=== PATIENT | male | born 1960 | race Caucasian/White ===

== ENCOUNTER 2017-06-14 17:31 | Observation (INO) | payer OTHER ==
[~2017-06-14] VITALS: Ht 198.1 cm; Wt 209.7 kg
[2017-06-14] MEDS ORDERED: LISI2.5T PO (17:48)
[2017-06-14] MEDS ORDERED: METF500T4 PO (17:48)
[2017-06-14 18:29] LABS: BASOPHILS # (AUTO) 0.04 x10^3/uL (0-0.1); BASOPHILS % (AUTO) 1 % (0-1); EOSINOPHILS # (AUTO) 0.05 x10^3/uL (0-0.4); EOSINOPHILS % (AUTO) 1 % (1-7); LYMPHOCYTES # (AUTO) 1.38 x10^3/uL (1-3.4); LYMPHOCYTES % (AUTO) 20 % (22-44); MD NO; MEAN CORPUSCULAR HEMOGLOBIN 26.3 pg (27.5-34.5); MEAN CORPUSCULAR HGB CONC 32.9 g/dL (33.2-36.2); MEAN CORPUSCULAR VOLUME 80.1 fL (81-97); MONOCYTES # (AUTO) 0.61 x10^3/uL (0.2-0.8); MONOCYTES % (AUTO) 9 % (2-9); NEUTROPHILS # (AUTO) 4.99 x10^3/uL (1.8-6.8); NEUTROPHILS % (AUTO) 71 % (42-75); PLATELET COUNT 202 x10^3/uL (130-400); RED BLOOD COUNT 5.77 x10^6/uL (4.38-5.82)
[2017-06-14] MEDS ORDERED: MORPHINE SULFATE 4 MG/ML, 1ML IVPush PRN (18:30)
[2017-06-14] MEDS ORDERED: NITROGLYCERIN SINGLE TAB 0.4 MG SL PRN (18:30)
[2017-06-14] MEDS ORDERED: SODIUM CHLORIDE FLUSH 10ML SYR IVF ONE (18:30)
[2017-06-14 18:37] LABS: ALANINE AMINOTRANSFERASE 77 U/L (12-78); ALBUMIN 3.5 g/dL (3.4-5.0); ANION GAP 8 mmol/L (5-15); CALCIUM 9.1 mg/dL (8.5-10.1); CHLORIDE 103 mmol/L (98-107); CREATININE 1.18 mg/dL (0.7-1.3)
[2017-06-14 18:42] LABS: ALKALINE PHOSPHATASE 83 U/L (45-117); BILIRUBIN,TOTAL 0.3 mg/dL (0.2-1.0); TOTAL PROTEIN 7.2 g/dL (6.4-8.2); TROPONIN I < 0.015 ng/mL (0.000-0.045)
[2017-06-14] MEDS ORDERED: HYDR12.53 PO (20:51)
[2017-06-14 20:57] VITALS: BP 145/80
[2017-06-14] MEDS ORDERED: SODIUM CHLORIDE 0.9% 1,000 ML IV SCH (23:05)
[2017-06-14] MEDS ORDERED: OXYcodone IR 5MG TABLET PO PRN (23:30)
[2017-06-14] MEDS ORDERED: hydrALAzine 20 MG/ML, 1ML IVPush PRN (23:30)
[2017-06-14] MEDS ORDERED: POLYETHYLENE GLYCOL 17 GM PACKET PO PRN (23:30)
[2017-06-14] MEDS ORDERED: ACETAMINOPHEN 325 MG TABLET PO PRN (23:30)
[2017-06-14] MEDS ORDERED: morphine SULFATE 10 MG/ML, 1ML IVPush PRN (23:30)
[2017-06-14] MEDS ORDERED: ENALAPRILAT 1.25 MG/ML, 2ML IVPush PRN (23:30)
[2017-06-14] MEDS ORDERED: BISACODYL 10 MG SUPP PR PRN (23:30)
[2017-06-14] MEDS ORDERED: DOCUSATE 100 MG CAPSULE PO PRN (23:30)
[2017-06-14] MEDS ORDERED: ONDANSETRON 2MG/ML, 2ML IVPush PRN (23:30)
[2017-06-14] MEDS: HEPARIN 5,000 UNITS/ML, 1ML SQ SCH (23:50)
[2017-06-14] MEDS: FAMOTIDINE 20 MG/2 ML IVPush SCH (23:50)
[2017-06-15 00:18] LABS: HEMOGLOBIN A1C 8.2 % (4.2-6.3)
[2017-06-15 00:20] LABS: FREE T4 (FREE THYROXINE) 1.08 ng/dL (0.76-1.46); THYROID STIMULATING HORMONE 2.01 mIU/L (0.358-3.740)
[2017-06-15 01:08] LABS: TROPONIN I < 0.015 ng/mL (0.000-0.045)
[2017-06-15 01:59] VITALS: BP 124/74
[2017-06-15] MEDS: INSULIN LISPRO 100 UNITS/ML, PEN SQ-INSULIN SCH ×4 (07:00→20:19)
[2017-06-15 07:21] VITALS: BP 127/81
[2017-06-15 07:31] LABS: BASOPHILS # (AUTO) 0.02 x10^3/uL (0-0.1); BASOPHILS % (AUTO) 1 % (0-1); EOSINOPHILS # (AUTO) 0.05 x10^3/uL (0-0.4); EOSINOPHILS % (AUTO) 1 % (1-7); LYMPHOCYTES # (AUTO) 1.33 x10^3/uL (1-3.4); LYMPHOCYTES % (AUTO) 24 % (22-44); MD NO; MEAN CORPUSCULAR HGB CONC 32.7 g/dL (33.2-36.2); MEAN CORPUSCULAR VOLUME 79.6 fL (81-97); MONOCYTES % (AUTO) 9 % (2-9); NEUTROPHILS # (AUTO) 3.55 x10^3/uL (1.8-6.8); NEUTROPHILS % (AUTO) 65 % (42-75); PLATELET COUNT 196 x10^3/uL (130-400); RED BLOOD COUNT 5.58 x10^6/uL (4.38-5.82); RED CELL DISTRIBUTION WIDTH 14.1 % (9.4-14.8)
[2017-06-15 07:34] LABS: MICROSCOPIC NOT IND
[2017-06-15 07:39] LABS: ALANINE AMINOTRANSFERASE 78 U/L (12-78); ALBUMIN 3.3 g/dL (3.4-5.0); ANION GAP 6 mmol/L (5-15); CALCIUM 8.5 mg/dL (8.5-10.1); CHLORIDE 107 mmol/L (98-107); CHOLESTEROL, TOTAL 153 mg/dL (140-239); CREATININE 1.01 mg/dL (0.7-1.3); TRIGLYCERIDES 121 mg/dL (50-200); VLDL CHOLESTEROL 24 mg/dL (0-25)
[2017-06-15 07:40] LABS: ALKALINE PHOSPHATASE 66 U/L (45-117); BILIRUBIN,TOTAL 0.6 mg/dL (0.2-1.0); CHOL/HDL RATIO 3.8; HDL CHOL % 26 % (26-37); HDL CHOLESTEROL (DIRECT) 40 mg/dL (40-60); LDL CHOLESTEROL,CALCULATED 89 mg/dL (54-169); LDL/HDL RATIO 2.2 (0.5-3.0); TOTAL PROTEIN 6.7 g/dL (6.4-8.2)
[2017-06-15 07:41] LABS: TROPONIN I < 0.015 ng/mL (0.000-0.045)
[2017-06-15 07:59] LABS: CULTURE INDICATED? NO
[2017-06-15] MEDS: LISINOPRIL 20 MG TABLET PO SCH (08:36)
[2017-06-15] MEDS: HEPARIN 5,000 UNITS/ML, 1ML SQ SCH ×2 (08:36→15:56)
[2017-06-15] MEDS: FAMOTIDINE 20 MG/2 ML IVPush SCH ×2 (08:37→20:19)
[2017-06-15] MEDS: HYDROCHLOROTHIAZIDE 12.5 MG CAPSULE PO SCH (08:37)
[2017-06-15] MEDS: ASPIRIN 325 MG TABLET EC PO SCH (08:37)
[2017-06-15] MEDS ORDERED: PNEUMOCOCCAL 23 VACCINE IM-VACC ONE (12:30)
[2017-06-15] MEDS ORDERED: FLU VACC QS2017-18 (36MOS+) UP/PF 0.5 ML IM-VACC ONE (12:30)
[2017-06-15 13:17] VITALS: BP 121/81
[2017-06-15 20:10] VITALS: BP_SYST 126; BP_SYST 136; BP_DIAS 78; BP_DIAS 85
[2017-06-16 00:22] VITALS: BP 111/77
[2017-06-16] MEDS: HEPARIN 5,000 UNITS/ML, 1ML SQ SCH ×3 (00:25→14:55)
[2017-06-16 07:55] VITALS: BP 121/77
[2017-06-16] MEDS: ASPIRIN 325 MG TABLET EC PO SCH (07:59)
[2017-06-16] MEDS: HYDROCHLOROTHIAZIDE 12.5 MG CAPSULE PO SCH (07:59)
[2017-06-16] MEDS: LISINOPRIL 20 MG TABLET PO SCH (07:59)
[2017-06-16] MEDS: FAMOTIDINE 20 MG/2 ML IVPush SCH (07:59)
[2017-06-16] MEDS: INSULIN LISPRO 100 UNITS/ML, PEN SQ-INSULIN SCH ×2 (08:42→11:42)
[2017-06-16] MEDS ORDERED: ACET-1600 PO (11:06)
[2017-06-16] MEDS ORDERED: FAMO20TA7 PO (11:09)
[2017-06-16 14:43] VITALS: BP 133/89
== END 2017-06-16 16:02 | disposition home or self-care (01) ==
LOC: ED 20:00 → EDIP 20:23 → INTOOBSV 20:23 → 5SO 20:44
PROVIDERS: ADMIT Internal Medicine; ATTEND Internal Medicine
DX: M94.0 Chondrocostal junction syndrome [Tietze] (principal); K21.9 Gastro-esophageal reflux disease without esophagitis; E11.65 Type 2 diabetes mellitus with hyperglycemia; E66.9 Obesity, unspecified; I10 Essential (primary) hypertension; Z87.891 Personal history of nicotine dependence; Z23 Encounter for immunization
CPT/HCPCS: 36415; 71045; 78452; 80053; 80061; 81003; 82728; 82962; 83036; 83540; 83550; 83735; 83880; 84439; 84443; 84466; 84484; 85025; 85379; 90471; 90472; 90686; 90732; 93005; 93017; 93970; 96372; 96374; 96376; 99285; A9502; C9898; G0378; J1644; J7030; S0028